=== PATIENT | male | born 1950 | race Caucasian/White ===

== ENCOUNTER 2017-06-09 17:11 | Inpatient (IN) | payer OTHER, MEDICARE ==
[~2017-06-09] VITALS: Ht 177.8 cm; Wt 80.2 kg
[2017-06-09] MEDS ORDERED: ACET325 PO (17:44)
[2017-06-09] MEDS ORDERED: ALBU2.5V5 NEB (17:46)
[2017-06-09] MEDS ORDERED: ATOR10 PO (17:47)
[2017-06-09] MEDS ORDERED: FINA5 PO (17:49)
[2017-06-09] MEDS ORDERED: Ceftriaxon2 GM/50 ML IV (17:49)
[2017-06-09] MEDS ORDERED: DOCU100 PO (17:49)
[2017-06-09] MEDS ORDERED: Novolog100 UNIT/2 (17:50)
[2017-06-09 18:52] LABS: BASOPHILS ABSOLUTE AUTO 0.03 K/mm3 (0.00-0.23); BASOPHILS PERCENT AUTO 0 % (0-2); EOSINOPHILS ABSOLUTE AUTO 0.01 K/mm3 (0.00-0.68); EOSINOPHILS PERCENT AUTO 0 % (0-6); Hematocrit 35.8 % (37.0-53.0); Hemoglobin 11.8 g/dL (13.5-17.5); IMMATURE GRAN ABSOLUTE AUTO 0.24 K/mm3 (0.00-0.10); IMMATURE GRAN PERCENT AUTO 2 % (0-1); LYMPHOCYTES ABSOLUTE AUTO 1.25 K/mm3 (0.84-5.20); LYMPHOCYTES PERCENT AUTO 11 % (21-46); MONOCYTES ABSOLUTE AUTO 1.62 K/mm3 (0.16-1.47); MONOCYTES PERCENT AUTO 15 % (4-13); Mean Corpuscular HGB 29.6 pg (26.0-34.0); Mean Corpuscular Volume 90 fL (80-100); Mean Platelet Volume 9.3 fL (9.1-12.4); NEUTROPHILS ABSOLUTE AUTO 8.02 K/mm3 (1.96-9.15); NEUTROPHILS PERCENT AUTO 72 % (41-73); Platelet Count 142 K/mm3 (150-400); RDW Coefficient Variation 14.5 % (11.7-14.2); RDW Standard Deviation 47.8 fL (35.1-46.3); Red Blood Cell Count 3.99 M/mm3 (4.30-5.90); White Blood Cell Count 11.17 K/mm3 (4.00-11.30)
[2017-06-09 19:12] LABS: International Normalized Ratio 1.03; Prothrombin Time Results 10.7 Sec (9.7-11.5)
[2017-06-09 19:14] LABS: Anion Gap 9 mmol/L (6-16); Blood Urea Nitrogen 14 mg/dL (8-24); Bun/Creatinine Ratio 14.7 (12.0-20.0); CO2, Blood 22 mmol/L (21-32); Chloride, Blood 99 mmol/L (98-108); Creatinine, Blood 0.95 mg/dL (0.60-1.20); Glomerular Filtration Rate >60 (60-); Glucose, Blood 136 mg/dL (70-99); Sodium, Blood 130 mmol/L (136-145)
[2017-06-09 19:21] LABS: C-REACTIVE PROTEIN, EXT RANGE >19.000 mg/dL (0.000-0.300)
[2017-06-10] MEDS ORDERED: BISA10S PR (03:03)
[2017-06-10] MEDS ORDERED: Humulin N100 UNIT/1 SC (03:07)
[2017-06-10] MEDS ORDERED: Milk Of Ma400 MG/5 M PO (03:08)
[2017-06-10] MEDS ORDERED: OXYC5 PO (03:12)
[2017-06-10] MEDS ORDERED: GAVILAX17 GM PO (03:13)
[2017-06-10] MEDS ORDERED: Senna8.6 MG PO (03:13)
[2017-06-10] MEDS ORDERED: TAMS.4ER PO (03:14)
[2017-06-10] MEDS ORDERED: VANCOMYCIN1.25 GM/21 IV (03:16)
[2017-06-10 06:00] LABS: BASOPHILS ABSOLUTE AUTO 0.03 K/mm3 (0.00-0.23); BASOPHILS PERCENT AUTO 0 % (0-2); EOSINOPHILS ABSOLUTE AUTO 0.01 K/mm3 (0.00-0.68); EOSINOPHILS PERCENT AUTO 0 % (0-6); Hematocrit 42.8 % (37.0-53.0); IMMATURE GRAN ABSOLUTE AUTO 0.24 K/mm3 (0.00-0.10); IMMATURE GRAN PERCENT AUTO 3 % (0-1); LYMPHOCYTES PERCENT AUTO 17 % (21-46); MONOCYTES ABSOLUTE AUTO 1.35 K/mm3 (0.16-1.47); MONOCYTES PERCENT AUTO 17 % (4-13); Mean Corpuscular HGB 29.3 pg (26.0-34.0); Mean Corpuscular HGB Conc 32.7 g/dL (31.5-36.5); Mean Corpuscular Volume 90 fL (80-100); Mean Platelet Volume 9.6 fL (9.1-12.4); NEUTROPHILS ABSOLUTE AUTO 5.05 K/mm3 (1.96-9.15); NEUTROPHILS PERCENT AUTO 63 % (41-73); Platelet Count 147 K/mm3 (150-400); RDW Coefficient Variation 14.6 % (11.7-14.2); RDW Standard Deviation 48.3 fL (35.1-46.3); Red Blood Cell Count 4.78 M/mm3 (4.30-5.90); White Blood Cell Count 8.08 K/mm3 (4.00-11.30)
[2017-06-10 06:18] LABS: Alanine Aminotransfer (ALT/SGP 35 U/L (12-78); Albumin, Blood 2.1 g/dL (3.4-5.0); Albumin/Globulin Ratio 0.4 (0.8-1.8); Alk Phos 411 U/L (50-136); Anion Gap 9 mmol/L (6-16); Aspartate Aminotrans (AST/SGOT 46 U/L (12-37); Bilirubin, Total 0.8 mg/dL (0.1-1.0); Blood Urea Nitrogen 16 mg/dL (8-24); Bun/Creatinine Ratio 15.8 (12.0-20.0); CO2, Blood 23 mmol/L (21-32); Calcium, Blood 8.9 mg/dL (8.5-10.1); Chloride, Blood 100 mmol/L (98-108); Creatinine, Blood 1.01 mg/dL (0.60-1.20); Globulin, Blood 5.4 g/dL (2.2-4.0); Glomerular Filtration Rate >60 (60-); Glucose, Blood 130 mg/dL (70-99); Sodium, Blood 132 mmol/L (136-145); Total Protein, Blood 7.5 g/dL (6.4-8.2)
[2017-06-10 14:45] LABS: BODY FLUID RBC 0.049 (0-0); RBC Count, Synovial Fluid 49000 /mm3 (0-0)
[2017-06-10 14:46] LABS: WBC Count, Synovial Fluid 37800 /mm3 (0-180)
[2017-06-10 14:49] LABS: Body Fluid Crystals NEG (NEGATIVE)
[2017-06-10 16:39] LABS: Appearance, Synovial Fluid Cloudy (Clear); Color, Synovial Fluid Opaque (None-P Yel)
[2017-06-10 16:40] LABS: RBC Count, Synovial Fluid 15950 /mm3 (0-0); WBC Count, Synovial Fluid 58900 /mm3 (0-180)
[2017-06-10 16:49] LABS: Lymphs, Synovial Fluid 12 % (0-15); Monocytes/Macrophages, Synovia 8 % (0-65); Neutrophils, Synovial Fluid 80 % (0-24)
[2017-06-10 17:00] LABS: Appearance, Synovial Fluid Cloudy (Clear); Color, Synovial Fluid Opaque (None-P Yel)
[2017-06-10 17:01] LABS: Crystals, Synovial Fluid Not Seen (Not Seen)
[2017-06-10 18:29] LABS: Lymphs, Synovial Fluid 12 % (0-15); Monocytes/Macrophages, Synovia 2 % (0-65); Neutrophils, Synovial Fluid 86 % (0-24)
[2017-06-10 18:31] LABS: Body Fluid Crystals NEG (NEGATIVE)
[2017-06-11 05:31] LABS: BASOPHILS ABSOLUTE AUTO 0.03 K/mm3 (0.00-0.23); BASOPHILS PERCENT AUTO 0 % (0-2); EOSINOPHILS ABSOLUTE AUTO 0.01 K/mm3 (0.00-0.68); EOSINOPHILS PERCENT AUTO 0 % (0-6); Hematocrit 35.2 % (37.0-53.0); Hemoglobin 11.7 g/dL (13.5-17.5); IMMATURE GRAN ABSOLUTE AUTO 0.32 K/mm3 (0.00-0.10); IMMATURE GRAN PERCENT AUTO 3 % (0-1); LYMPHOCYTES PERCENT AUTO 16 % (21-46); MONOCYTES ABSOLUTE AUTO 1.68 K/mm3 (0.16-1.47); MONOCYTES PERCENT AUTO 17 % (4-13); Mean Corpuscular HGB 29.5 pg (26.0-34.0); Mean Corpuscular HGB Conc 33.2 g/dL (31.5-36.5); Mean Corpuscular Volume 89 fL (80-100); Mean Platelet Volume 9.7 fL (9.1-12.4); NEUTROPHILS ABSOLUTE AUTO 6.57 K/mm3 (1.96-9.15); NEUTROPHILS PERCENT AUTO 64 % (41-73); Platelet Count 212 K/mm3 (150-400); RDW Coefficient Variation 14.6 % (11.7-14.2); RDW Standard Deviation 47.8 fL (35.1-46.3); Red Blood Cell Count 3.97 M/mm3 (4.30-5.90); White Blood Cell Count 10.21 K/mm3 (4.00-11.30)
[2017-06-11 06:04] LABS: Bun/Creatinine Ratio 15.9 (12.0-20.0); Calcium, Blood 8.8 mg/dL (8.5-10.1); Creatinine, Blood 1.32 mg/dL (0.60-1.20); Potassium, Blood 4.2 mmol/L (3.5-5.5)
[2017-06-11 08:58] LABS: Vancomycin, Trough 29.8 ug/mL (5.0-10.0)
[2017-06-14 06:42] LABS: BASOPHILS ABSOLUTE AUTO 0.04 K/mm3 (0.00-0.23); BASOPHILS PERCENT AUTO 0 % (0-2); EOSINOPHILS ABSOLUTE AUTO 0.06 K/mm3 (0.00-0.68); EOSINOPHILS PERCENT AUTO 1 % (0-6); Hematocrit 32.4 % (37.0-53.0); Hemoglobin 10.5 g/dL (13.5-17.5); IMMATURE GRAN ABSOLUTE AUTO 0.22 K/mm3 (0.00-0.10); IMMATURE GRAN PERCENT AUTO 2 % (0-1); LYMPHOCYTES ABSOLUTE AUTO 2.11 K/mm3 (0.84-5.20); LYMPHOCYTES PERCENT AUTO 16 % (21-46); MONOCYTES ABSOLUTE AUTO 1.42 K/mm3 (0.16-1.47); MONOCYTES PERCENT AUTO 11 % (4-13); Mean Corpuscular HGB 29.2 pg (26.0-34.0); Mean Corpuscular HGB Conc 32.4 g/dL (31.5-36.5); Mean Corpuscular Volume 90 fL (80-100); Mean Platelet Volume 9.6 fL (9.1-12.4); NEUTROPHILS ABSOLUTE AUTO 9.09 K/mm3 (1.96-9.15); NEUTROPHILS PERCENT AUTO 70 % (41-73); Platelet Count 359 K/mm3 (150-400); RDW Standard Deviation 50.3 fL (35.1-46.3); Red Blood Cell Count 3.59 M/mm3 (4.30-5.90); White Blood Cell Count 12.94 K/mm3 (4.00-11.30)
[2017-06-16 05:47] LABS: BASOPHILS ABSOLUTE AUTO 0.03 K/mm3 (0.00-0.23); BASOPHILS PERCENT AUTO 0 % (0-2); EOSINOPHILS ABSOLUTE AUTO 0.03 K/mm3 (0.00-0.68); EOSINOPHILS PERCENT AUTO 0 % (0-6); Hematocrit 35.6 % (37.0-53.0); Hemoglobin 11.4 g/dL (13.5-17.5); IMMATURE GRAN ABSOLUTE AUTO 0.22 K/mm3 (0.00-0.10); IMMATURE GRAN PERCENT AUTO 2 % (0-1); LYMPHOCYTES ABSOLUTE AUTO 2.11 K/mm3 (0.84-5.20); LYMPHOCYTES PERCENT AUTO 15 % (21-46); MONOCYTES ABSOLUTE AUTO 1.17 K/mm3 (0.16-1.47); MONOCYTES PERCENT AUTO 8 % (4-13); Mean Corpuscular HGB 29.5 pg (26.0-34.0); Mean Corpuscular Volume 92 fL (80-100); Mean Platelet Volume 9.1 fL (9.1-12.4); NEUTROPHILS ABSOLUTE AUTO 10.32 K/mm3 (1.96-9.15); NEUTROPHILS PERCENT AUTO 74 % (41-73); Platelet Count 428 K/mm3 (150-400); Red Blood Cell Count 3.86 M/mm3 (4.30-5.90); White Blood Cell Count 13.88 K/mm3 (4.00-11.30)
[2017-06-16 06:15] LABS: Bun/Creatinine Ratio 17.7 (12.0-20.0); Calcium, Blood 9.8 mg/dL (8.5-10.1); Creatinine, Blood 2.09 mg/dL (0.60-1.20); Potassium, Blood 5.7 mmol/L (3.5-5.5)
[2017-06-16] MEDS ORDERED: ALBU90OI INH (14:43)
[2017-06-16] MEDS ORDERED: LISI5 PO (14:44)
[2017-06-16] MEDS ORDERED: Bactrim Ds Tab1 EACH PO (14:44)
[2017-06-16] MEDS ORDERED: SACC250C PO (14:44)
== END 2017-06-16 15:31 | disposition short-term general hospital (02) | DRG 493 ==
LOC: ER 17:11 → MEDS 20:01
PROVIDERS: Emergency Medicine; Family Medicine; Internal Medicine; Orthopaedic Surgery
PROC: 0SBG0ZZ Excision of Left Ankle Joint, Open Approach (ICD-10-PCS; principal; 2017-06-10 13:45)
PROC: 0S9 Lower Joints, Drainage (ICD-10-PCS; principal; 2017-06-10 13:45)
PROC: 0R9P00Z Drainage of Left Wrist Joint with Drainage Device, Open Approach (ICD-10-PCS; principal; 2017-06-10 13:45)
DX: M00.072 Staphylococcal arthritis, left ankle and foot (principal); E87.1 Hypo-osmolality and hyponatremia; L03.116 Cellulitis of left lower limb; M86.9 Osteomyelitis, unspecified; M00.032 Staphylococcal arthritis, left wrist; I10 Essential (primary) hypertension; K70.9 Alcoholic liver disease, unspecified; K70.40 Alcoholic hepatic failure without coma; E11.9 Type 2 diabetes mellitus without complications; Z79.899 Other long term (current) drug therapy; Z79.4 Long term (current) use of insulin; B95.62 Methicillin resistant Staphylococcus aureus infection as the cause of diseases classified elsewhere
CPT/HCPCS: 20606; 36415; 36593; 73100; 73201; 73610; 76882; 80048; 80053; 80202; 82947; 85025; 85610; 85651; 85730; 86140; 87040; 87070; 87075; 87077; 87147; 87205; 89051; 89060; 93005; 93010; 96374; 96375; 99285; J0690; J1170; J1630; J1815; J2060; J2250; J2405; J2543; J2710; J2997; J3010; J3370; J7030; J7120; Q9967

== ENCOUNTER 2019-10-20 19:07 | Emergency (ER) | payer OTHER ==
[~2019-10-20] VITALS: Ht 180.3 cm; Wt 86.2 kg
[~2019-10-20 19:07] MED LIST: ACET325 PO; ALBU2.5V5 NEB; ALBU90OI INH; ATEN25 PO; ATOR10 PO; BISA10S PR; Bactrim Ds Tab1 EACH PO; Ceftriaxon2 GM/50 ML IV; DOCU100 PO; FINA5 PO; GAVILAX17 GM PO; Humulin N100 UNIT/1 SC; LISI5 PO; METF500 PO; Milk Of Ma400 MG/5 M PO; Norco 5-325 Ta1 EACH PO; Novolog100 UNIT/2; OXYC5 PO; Robaxin-750750 MG PO; SACC250C PO; Senna8.6 MG PO; TAMS.4ER PO; VANCOMYCIN1.25 GM/21 IV
[2019-10-20 20:45] LABS: BASOPHILS ABSOLUTE AUTO 0.05 K/mm3 (0.00-0.23); BASOPHILS PERCENT AUTO 0 % (0-2); EOSINOPHILS ABSOLUTE AUTO 0.01 K/mm3 (0.00-0.68); EOSINOPHILS PERCENT AUTO 0 % (0-6); Hematocrit 40.5 % (37.0-53.0); Hemoglobin 13.2 g/dL (13.5-17.5); IMMATURE GRAN ABSOLUTE AUTO 0.25 K/mm3 (0.00-0.10); IMMATURE GRAN PERCENT AUTO 2 % (0-1); LYMPHOCYTES PERCENT AUTO 13 % (21-46); MONOCYTES PERCENT AUTO 17 % (4-13); Mean Corpuscular HGB 30.1 pg (26.0-34.0); Mean Corpuscular HGB Conc 32.6 g/dL (31.5-36.5); Mean Corpuscular Volume 93 fL (80-100); NEUTROPHILS ABSOLUTE AUTO 8.18 K/mm3 (1.96-9.15); NEUTROPHILS PERCENT AUTO 68 % (41-73); Platelet Count 251 K/mm3 (150-400); RDW Coefficient Variation 13.4 % (11.7-14.2); Red Blood Cell Count 4.38 M/mm3 (4.30-5.90); White Blood Cell Count 12.09 K/mm3 (4.00-11.30)
[2019-10-20 21:10] LABS: Alanine Aminotransfer (ALT/SGP 18 U/L (12-78); Albumin, Blood 2.1 g/dL (3.4-5.0); Albumin/Globulin Ratio 0.4 (0.8-1.8); Alk Phos 153 U/L (50-136); Anion Gap 10 mmol/L (6-16); Aspartate Aminotrans (AST/SGOT 26 U/L (12-37); Bilirubin, Total 0.2 mg/dL (0.1-1.0); Blood Urea Nitrogen 12 mg/dL (8-24); Bun/Creatinine Ratio 12.8 (12.0-20.0); CO2, Blood 26 mmol/L (21-32); CPK Creatine Kinase 28 U/L (39-308); Calcium, Blood 9.7 mg/dL (8.5-10.1); Chloride, Blood 94 mmol/L (98-108); Creatinine, Blood 0.94 mg/dL (0.60-1.20); Globulin, Blood 5.8 g/dL (2.2-4.0); Glomerular Filtration Rate >60 (60-); Glucose, Blood 317 mg/dL (70-99); Potassium, Blood 3.2 mmol/L (3.5-5.5); Sodium, Blood 130 mmol/L (136-145); Total Protein, Blood 7.9 g/dL (6.4-8.2)
[2019-10-20 21:23] LABS: C-REACTIVE PROTEIN, EXT RANGE >19.000 mg/dL (0.000-0.300)
[2019-10-20] MEDS ORDERED: ATOR20 PO (22:15)
[2019-10-20] MEDS ORDERED: ERGO400 PO (22:16)
[2019-10-20] MEDS ORDERED: SILD50TA PO (22:17)
[2019-10-20] MEDS ORDERED: Roxicodone5 MG PO (22:21)
[2019-10-20] MEDS ORDERED: Prednisone20 MG PO (22:21)
== END 2019-10-20 22:50 | disposition home or self-care (01) ==
LOC: ER 19:07
PROVIDERS: Emergency Medicine
DX: M79.10 Myalgia, unspecified site (principal); R50.9 Fever, unspecified; I10 Essential (primary) hypertension; E11.9 Type 2 diabetes mellitus without complications; Z79.84 Long term (current) use of oral hypoglycemic drugs; Z79.899 Other long term (current) drug therapy
CPT/HCPCS: 36415; 80053; 82550; 84484; 85025; 85651; 86140; 99283; A9270; J7512

== ENCOUNTER 2019-11-13 15:37 | Emergency (ER) | payer OTHER ==
[~2019-11-13] VITALS: Ht 177.8 cm; Wt 77.1 kg
[~2019-11-13 15:37] MED LIST changes: +ATOR20 PO; +ERGO400 PO; +Prednisone20 MG PO; +Roxicodone5 MG PO; +SILD50TA PO
[2019-11-13] MEDS ORDERED: VITAMIN D310 MC4 PO (16:05)
[2019-11-13] MEDS ORDERED: CENTRUM SILVER1 EAC2 PO (16:06)
[2019-11-13] MEDS ORDERED: METF500 PO (16:06)
[2019-11-13] MEDS ORDERED: LIDO5TO TOP (16:06)
[2019-11-13] MEDS ORDERED: OXYC5 PO (16:06)
[2019-11-13] MEDS ORDERED: SILD50TA PO (16:07)
[2019-11-13] MEDS ORDERED: Neurontin 100100 MG PO (19:38)
[2019-11-13] MEDS ORDERED: Norco 5-325 Ta1 EACH PO (19:38)
== END 2019-11-13 20:32 | disposition home or self-care (01) ==
LOC: ER 15:37
DX: M25.551 Pain in right hip (principal); I10 Essential (primary) hypertension; E78.5 Hyperlipidemia, unspecified; E11.9 Type 2 diabetes mellitus without complications; Z79.899 Other long term (current) drug therapy; Z79.84 Long term (current) use of oral hypoglycemic drugs; W14.XXXA Fall from tree, initial encounter
CPT/HCPCS: 73700; 82947; 99284-25

== ENCOUNTER 2019-11-16 23:20 | Emergency (ER) | payer OTHER ==
[~2019-11-16] VITALS: Ht 177.8 cm; Wt 77.1 kg
[~2019-11-16 23:20] MED LIST changes: +CENTRUM SILVER1 EAC2 PO; +LIDO5TO TOP; +Neurontin 100100 MG PO; +VITAMIN D310 MC4 PO
[2019-11-16] MEDS ORDERED: PRED5 PO (23:40)
== END 2019-11-17 00:30 | disposition left against medical advice (07) ==
LOC: ER 23:20
DX: M25.551 Pain in right hip (principal); Z79.84 Long term (current) use of oral hypoglycemic drugs; Z79.899 Other long term (current) drug therapy; I10 Essential (primary) hypertension; F43.10 Post-traumatic stress disorder, unspecified; N40.0 Benign prostatic hyperplasia without lower urinary tract symptoms; E78.5 Hyperlipidemia, unspecified; E11.9 Type 2 diabetes mellitus without complications
CPT/HCPCS: 99283

== ENCOUNTER 2020-06-25 08:29 | Day surgery (SDC) | payer OTHER ==
[~2020-06-25] VITALS: Ht 177.8 cm; Wt 75.0 kg
[~2020-06-25 08:29] MED LIST changes: +PRED5 PO
== END 2020-06-25 15:15 | disposition home or self-care (01) ==
LOC: MHTC 08:29
DX: I70.213 Atherosclerosis of native arteries of extremities with intermittent claudication, bilateral legs (principal); I99.8 Other disorder of circulatory system; E11.9 Type 2 diabetes mellitus without complications; E78.5 Hyperlipidemia, unspecified; E11.621 Type 2 diabetes mellitus with foot ulcer; L97.509 Non-pressure chronic ulcer of other part of unspecified foot with unspecified severity
CPT/HCPCS: 37224; 37228; 37232; 75625; 75716; 75774; 85347; 99152; 99153; C1725; C1760; C1769; C1887; C1894; J1644; J2250; J3010; J7030; J7050; Q9967

== ENCOUNTER 2021-04-01 00:47 | Day surgery (SDC) | payer OTHER | END 2021-04-01 22:47 | disposition home or self-care (01) | LOC: WOUND 00:47 | DX: E11.621 Type 2 diabetes mellitus with foot ulcer (principal); L97.522 Non-pressure chronic ulcer of other part of left foot with fat layer exposed; E11.51 Type 2 diabetes mellitus with diabetic peripheral angiopathy without gangrene; E11.59 Type 2 diabetes mellitus with other circulatory complications; E11.40 Type 2 diabetes mellitus with diabetic neuropathy, unspecified | CPT/HCPCS: A9270 ==

== ENCOUNTER 2021-04-14 00:44 | Day surgery (SDC) | payer OTHER | END 2021-04-14 00:52 | disposition home or self-care (01) | LOC: WOUND 00:44 | DX: E11.621 Type 2 diabetes mellitus with foot ulcer (principal); L97.522 Non-pressure chronic ulcer of other part of left foot with fat layer exposed; E11.59 Type 2 diabetes mellitus with other circulatory complications; E11.51 Type 2 diabetes mellitus with diabetic peripheral angiopathy without gangrene | CPT/HCPCS: A9270; G0463 ==

== ENCOUNTER 2021-05-12 00:32 | Day surgery (SDC) | payer OTHER | END 2021-05-12 22:54 | disposition home or self-care (01) | LOC: WOUND 00:32 | DX: E11.621 Type 2 diabetes mellitus with foot ulcer (principal); L97.522 Non-pressure chronic ulcer of other part of left foot with fat layer exposed; E11.59 Type 2 diabetes mellitus with other circulatory complications; E11.51 Type 2 diabetes mellitus with diabetic peripheral angiopathy without gangrene | CPT/HCPCS: A9270; G0463 ==

== ENCOUNTER 2021-05-19 05:56 | Day surgery (SDC) | payer OTHER | END 2021-05-19 23:26 | disposition home or self-care (01) | LOC: WOUND 05:56 | DX: E11.621 Type 2 diabetes mellitus with foot ulcer (principal); L97.522 Non-pressure chronic ulcer of other part of left foot with fat layer exposed | CPT/HCPCS: A9270; G0463 ==

== ENCOUNTER 2021-05-25 08:41 | Day surgery (SDC) | payer OTHER ==
[~2021-05-25] VITALS: Ht 177.8 cm; Wt 87.5 kg
[~2021-05-25 08:41] MED LIST changes: +XARELTO2.5 M1 PO
[2021-05-25] MEDS ORDERED: LOSA50 PO (09:50)
--- NOTE | 2021-05-25 15:00 | NUR ---
PT VERBALIZES UNDERSTANDING WRITTEN AND VERBAL ORDERS. PT IV DC'D. CATH INTACT. PRESSURE DSG APPLIED. PT DC TO HOME VIA FAMILY. R FEMORAL SITE REMAINS CLEAR.
== END 2021-05-25 15:00 | disposition home or self-care (01) ==
LOC: MHTC 08:41
DX: E11.51 Type 2 diabetes mellitus with diabetic peripheral angiopathy without gangrene (principal); I70.213 Atherosclerosis of native arteries of extremities with intermittent claudication, bilateral legs; E11.621 Type 2 diabetes mellitus with foot ulcer; L97.529 Non-pressure chronic ulcer of other part of left foot with unspecified severity; E78.5 Hyperlipidemia, unspecified; Z79.82 Long term (current) use of aspirin
CPT/HCPCS: 75716; 75774; 76937; 85347; 99152; 99153; C1725; C1760; C1769; C1887; C1894; C9772; J0360; J1644; J2250; J3010; J7030; J7050; Q9967

== ENCOUNTER 2021-06-02 01:59 | Day surgery (SDC) | payer OTHER ==
[~2021-06-02 01:59] MED LIST changes: +LOSA50 PO
== END 2021-06-02 23:13 | disposition home or self-care (01) ==
LOC: WOUND 01:59
DX: E11.621 Type 2 diabetes mellitus with foot ulcer (principal); L97.522 Non-pressure chronic ulcer of other part of left foot with fat layer exposed; E11.51 Type 2 diabetes mellitus with diabetic peripheral angiopathy without gangrene; E11.59 Type 2 diabetes mellitus with other circulatory complications; E11.40 Type 2 diabetes mellitus with diabetic neuropathy, unspecified
CPT/HCPCS: A9270

== ENCOUNTER 2021-06-09 02:28 | Day surgery (SDC) | payer OTHER | END 2021-06-09 22:49 | disposition home or self-care (01) | LOC: WOUND 02:28 | DX: E11.621 Type 2 diabetes mellitus with foot ulcer (principal); L97.522 Non-pressure chronic ulcer of other part of left foot with fat layer exposed; E11.51 Type 2 diabetes mellitus with diabetic peripheral angiopathy without gangrene; E11.40 Type 2 diabetes mellitus with diabetic neuropathy, unspecified | CPT/HCPCS: A9270; G0463 ==